=== PATIENT | female | born 1970 | race Hispanic/Latino ===

== ENCOUNTER 2018-09-13 08:47 | Emergency (ER) | payer BC ==
[~2018-09-13] VITALS: Ht 154.9 cm; Wt 63.2 kg
[~2018-09-13 08:47] MED LIST: NO HOME MEDS; PROMETHAZINE25 MG OR; TYLENOL # 31 TAB OR
[2018-09-13] MEDS ORDERED: ELIQUIS5 MG PO (09:19)
[2018-09-13] MEDS ORDERED: FERR SULFATE325 MG PO (09:19)
[2018-09-13] MEDS ORDERED: PERCOCET 5/325M1 TAB PO (09:23)
[2018-09-13 09:41] LABS: HEMATOCRIT 37.6 % (37.0-47.0); IMMATURE GRANULOCYTES 0.2 % (0.0-5.0); MEAN CORPUSCULAR HGB 26.9 pG CALC (26.0-32.0); MEAN CORPUSCULAR HGB CONC 30.9 g/L CALC (32.0-36.0); NEUT# 2.72 thou/uL (2.00-7.15); RED BLOOD COUNT 4.32 mill/uL (4.20-5.60); RED CELL DISTRI WIDTH 14.5 % (11.5-15.5)
[2018-09-13 09:43] LABS: URINE BILIRUBIN - DIPSTICK NEGATIVE (NEGATIVE); URINE BLOOD DIPSTICK LARGE (NEGATIVE); URINE GLUCOSE - DIPSTICK NEGATIVE (NEGATIVE); URINE KETONE NEGATIVE (NEGATIVE); URINE LEUK ESTERASE NEGATIVE (NEGATIVE); URINE NITRITE - DIPSTICK NEGATIVE (Negative); URINE PROTEIN - DIPSTICK 30 mg/dL (NEG-TRACE); URINE SPECIFIC GRAVITY <=1.005; URINE UROBILINOGEN - DIPSTICK 0.2 E.U./dL (0.2)
[2018-09-13 09:44] LABS: HEMOGLOBIN 11.6 g/dl (12.0-16.0)
[2018-09-13 09:46] LABS: URINE COLOR RED
[2018-09-13 09:47] LABS: URINE RBC TNTC RBC/hpf (0-5)
[2018-09-13 09:52] LABS: ALBUMIN 4.4 g/dL (3.2-5.0); ALKALINE PHOSPHATASE 75 u/l (38-126); ANION GAP 14 (6-22 (CALC)); BUN 12 mg/dL (7-17); BUN/CREATININE RATIO 27 (12-20 (CALC)); CARBON DIOXIDE 23 mmol/l (22-30); CHLORIDE 108 mmol/l (95-108); CREATININE 0.5 mg/dL (0.5-1.0); GFR > 60 ML/MIN (>=60 (CALC)); GFR FOR AFR.AMER. > 60 ML/MIN (>=60 (CALC)); POTASSIUM 4.2 mmol/l (3.5-5.1); SGOT/AST 25 u/l (14-36); SODIUM 140 mmol/l (137-146); TOTAL PROTEIN 7.4 g/dL (6.3-8.2)
[2018-09-13 09:58] LABS: BILIRUBIN, TOTAL 0.4 mg/dL (0.0-1.4)
[2018-09-13 10:42] VITALS: BP 105/52
== END 2018-09-13 10:52 | disposition home or self-care (01) | DRG 761 ==
LOC: ED 08:47
PROVIDERS: Emergency Medicine
DX: N93.9 Abnormal uterine and vaginal bleeding, unspecified (principal); Z86.718 Personal history of other venous thrombosis and embolism; Z79.01 Long term (current) use of anticoagulants

== ENCOUNTER 2023-04-25 19:36 | Emergency (ER) | payer OTHER ==
[~2023-04-25] VITALS: Ht 154.9 cm; Wt 62.0 kg
[~2023-04-25 19:36] MED LIST changes: +ELIQUIS5 MG PO; +FERR SULFATE325 MG PO; +PERCOCET 5/325M1 TAB PO
[2023-04-25] MEDS ORDERED: VITAMIN D-32000 UNIT PO (20:52)
[2023-04-25] MEDS ORDERED: PHENAZOPYRIDINE HCL 100 MG/TAB PO ONE (21:00)
[2023-04-25 21:32] VITALS: BP 118/75
[2023-04-25 21:34] LABS: BASO% 1.1 % (0-3); EOS% 4.8 % (0-8); HEMATOCRIT 40.5 % (37.0-47.0); HEMOGLOBIN 13.1 g/dl (12.0-16.0); IMMATURE GRANULOCYTES 0.2 % (0.0-5.0); MEAN CORPUSCULAR HGB 30.7 pG CALC (26.0-32.0); MEAN CORPUSCULAR HGB CONC 32.3 g/dL CAL (32.0-36.0); MONO% 11.2 % (2-13); NEUT# 1.94 thou/uL (2.00-7.15); NEUT% 42.7 % (42-76); RED BLOOD COUNT 4.27 mill/uL (4.20-5.60); RED CELL DISTRI WIDTH 11.8 % (11.5-15.5)
[2023-04-25 21:35] LABS: URINE BILIRUBIN - DIPSTICK Negative (NEGATIVE); URINE BLOOD DIPSTICK Trace-lysed (NEGATIVE); URINE GLUCOSE - DIPSTICK Negative (NEGATIVE); URINE KETONE Negative (NEGATIVE); URINE LEUK ESTERASE Negative (NEGATIVE); URINE NITRITE - DIPSTICK Negative (Negative); URINE PH 5.5 (4.5-8.0); URINE PROTEIN - DIPSTICK Negative (NEG-TRACE); URINE UROBILINOGEN - DIPSTICK 0.2 E.U./dL (0.2)
[2023-04-25 21:40] LABS: MEAN CELL VOLUME 94.8 fL CALC (80.0-100.0)
[2023-04-25 21:40] LABS: URINE COLOR Yellow
[2023-04-25 21:45] VITALS: BP 104/64
[2023-04-25 22:00] VITALS: BP 103/62
[2023-04-25] MEDS ORDERED: WITCH HAZEL EX ONE (22:00)
[2023-04-25] MEDS ORDERED: [UNRECOGNIZED DRUG - OTHER] EX ONE (22:00)
[2023-04-25 22:15] VITALS: BP 108/67
[2023-04-25 22:30] VITALS: BP 106/67
[2023-04-25 23:45] VITALS: BP 88/55
[2023-04-26] VITALS (8 sets, daily range): BP systolic 96–114; BP diastolic 46–78
== END 2023-04-26 01:46 | disposition home or self-care (01) | DRG 395 ==
LOC: ED 19:36
PROVIDERS: Family Medicine
DX: K64.4 Residual hemorrhoidal skin tags (principal)